=== PATIENT | male | born 1940 | race Caucasian/White ===

== ENCOUNTER 2022-09-08 12:05 | Emergency (ER) | payer OTHER | END 2022-09-08 13:08 | disposition home or self-care (01) | LOC: LB.ED 12:05 | DX: M25.562 Pain in left knee (principal); M25.512 Pain in left shoulder; M54.50 Low back pain, unspecified; I10 Essential (primary) hypertension; K21.9 Gastro-esophageal reflux disease without esophagitis; W01.0XXA Fall on same level from slipping, tripping and stumbling without subsequent striking against object, initial encounter | CPT/HCPCS: 72100; 73030-LT; 73562-LT; 99283 ==

== ENCOUNTER 2023-08-13 10:21 | Emergency (ER) | payer OTHER | END 2023-08-13 10:52 | disposition home or self-care (01) | LOC: LB.ED 10:21 | DX: S50.812A Abrasion of left forearm, initial encounter (principal); D69.9 Hemorrhagic condition, unspecified; I25.10 Atherosclerotic heart disease of native coronary artery without angina pectoris; I10 Essential (primary) hypertension; Z79.01 Long term (current) use of anticoagulants; Z79.82 Long term (current) use of aspirin; X58.XXXA Exposure to other specified factors, initial encounter | CPT/HCPCS: 99283 ==

== ENCOUNTER 2024-06-20 09:01 | Emergency (ER) | payer OTHER ==
[2024-06-20 09:43] LABS: BASOPHILS ABSOLUTE AUTO 0.01 K/uL (0.02-0.10); BASOPHILS PERCENT AUTO 0.2 % (0.0-0.5); EOSINOPHILS PERCENT AUTO 1.7 % (1.0-5.0); HEMATOCRIT 41.1 % (40.0-54.0); HEMOGLOBIN 14.2 g/dL (13.0-18.0); LYMPHOCYTES ABSOLUTE AUTO 1.29 K/uL (1.50-4.00); LYMPHOCYTES PERCENT AUTO 21.6 % (20.0-40.0); MEAN CORPUSCULAR HEMOGLOBIN 31.4 pg (27.0-32.0); MEAN CORPUSCULAR HGB CONC 34.5 g/dL (31.0-35.0); MEAN CORPUSCULAR VOLUME 91 fL (76-96); MEAN PLATELET VOLUME 9.4 fL (6.0-10.0); MONOCYTES ABSOLUTE AUTO 0.69 K/uL (0.20-0.80); MONOCYTES PERCENT AUTO 11.6 % (3.0-10.0); NEUTROPHILS ABSOLUTE AUTO 3.88 K/uL (2.00-7.50); NEUTROPHILS PERCENT AUTO 64.9 % (45.0-70.0); PLATELET COUNT,PLT 172 K/uL (150-400); RED BLOOD CELL COUNT 4.52 M/uL (4.50-6.50); RED CELL DISTRIBUTION WIDTH 13.1 % (11.0-16.0)
[2024-06-20 10:02] LABS: A/G RATIO 1.1 (0.8-2.0); ALBUMIN 3.6 g/dL (3.4-5.0); ANION GAP 13.4 mmol/L (5.0-15.0); BILIRUBIN TOTAL 1.1 mg/dL (0.0-1.0); BUN/CREATININE RATIO 17.7 (6-25); CALCIUM 8.6 mg/dL (8.5-10.1); CARBON DIOXIDE,CO2 28.1 mmol/L (21.0-32.0); CREATININE 0.96 mg/dL (0.70-1.30); EST CRCL DRUG DOSING (CG) 62.87 mL/min; POTASSIUM,K 3.5 mmol/L (3.5-5.1); PROTEIN TOTAL,TP 6.9 g/dL (6.4-8.2); TROPONIN I HIGH SENSITIVITY 6.1 pg/ml (<=60.4)
[2024-06-20 10:15] LABS: PTT,PARTIAL THROMBOPLSTIN TIME 25.1 SECONDS (24.4-33.2)
[2024-06-20 10:20] LABS: PROTHROMBIN TIME 10.8 sec (9.0-11.5)
== END 2024-06-20 11:30 | disposition home or self-care (01) ==
LOC: LB.ED 09:01
DX: S20.319A Abrasion of unspecified front wall of thorax, initial encounter (principal); I11.0 Hypertensive heart disease with heart failure; I50.9 Heart failure, unspecified; E78.00 Pure hypercholesterolemia, unspecified; K21.9 Gastro-esophageal reflux disease without esophagitis; Z95.5 Presence of coronary angioplasty implant and graft; Z79.82 Long term (current) use of aspirin; Z79.899 Other long term (current) drug therapy; X58.XXXA Exposure to other specified factors, initial encounter
CPT/HCPCS: 36415; 71250; 74176; 80053; 83690; 84484; 85025; 85610; 85730; 99284; 99285